=== PATIENT | male | born 2000 | race Caucasian/White ===

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

== ENCOUNTER 2023-11-25 10:53 | Emergency (ER) | payer MEDICAID, SELFPAY ==
--- NOTE | ~2023-11-25 | XR_ITS ---
EXAMINATION: XR knee RT min 4V DATE: 11/25/2023 11:32 INDICATION: Right knee injury TECHNIQUE: Anteroposterior, 2 oblique and crosstable lateral views of the right knee were obtained COMPARISON: None. FINDINGS: Alignment is normal. No fracture. Joint space at the right knee are normal. No joint effusion/layeri ng lipohemarthrosis. Soft tissues are unremarkable. IMPRESSION: 1. Normal right knee radiographs. Reviewed, dictated and finalized at location B.
[2023-11-25 11:04] VITALS: BP 123/70; PULSE 67; RESP 18; TEMP 37; O2SAT 100
--- NOTE | 2023-11-25 11:33 | ED.LOWEXIN ---
HPI - Extremity Injury (Lower) General Chief Complaint: Extremity Injury, Lower Stated Complaint: Right Knee Injury Time Seen by Provider: 11/25/23 11:34 Source: patient Mode of arrival: ambulatory Limitations: no limitations History of Present Illness HPI Narrative: 23-year-old male presented for complaint of right knee pain after injury yesterday morning. He states around 10:00 a.m. he struck knee on a forklift. He was able to work for the remaining shift. He took ibuprofen last night. States pain is better with the leg straight, worse when the knee bends or weight bearing. States the swelling improved since last night. Denies bruising, warmth or deformity. Related Data Home Medications Medication Instructions Recorded Confirmed No Home Medications 11/25/23 11/25/23 Allergies Allergy/AdvReac Type Severity Reaction Status Date / Time No Known Allergies Allergy Verified 11/25/23 11:12 Review of Systems Review of Systems: CONSTITUTIONAL: Denies body aches, fever, chills CARDIOVASCULAR: Denies chest pain, palpitations, or edema. RESPIRATORY: Denies cough or dyspnea. GASTROINTESTINAL: Denies abdominal pain, nausea, vomiting, or diarrhea. SKIN: Denies rash, itching, or wounds. MUSCULOSKELETAL: Reports right knee pain NEUROLOGIC: Denies headache, numbness, tingling, or weakness. All systems reviewed & are unremarkable except as noted in HPI and below PMFSH Past Medical History Medical History Asthma History of RSV infection Lumbar back pain Pneumonia Seizures Surgical History Surgical History History of placement of ear tubes History of tonsillectomy Comments At time of signature, I have reviewed and agree with nursing past medical, surgical, social and family history unless otherwise noted. Please see nursing chart for further information. There is no relevant family history pertinent to the presenting complaint Exam Narrative: GENERAL: Well-appearing CHEST: Speaks in full sentences. No respiratory distress. HEART: Regular rate and rhythm. Normal and equal peripheral pulses. EXTREMITIES: Patient is able to bear weight and ambulate with pain to the right knee. No bruising, erythema or warmth. The right knee is without obvious asymmetry or deformity when compared to the other knee. Patient is able to tolerate full extension, internal and external rotation. Pain worse when flexion. Tender to medial and superior aspects of patella. No tenderness to palpation of the patella, no effusion or ballottement. No tenderness over the infrapatellar tendon. No tenderness over the proximal fibular head. No quadriceps tenderness. Distal motor and neurovascular status intact. SKIN: Warm, dry, Capillary refill less than 3 seconds. NEURO: Alert and oriented x3. PSYCH: Normal mood and affect Extrem: Knee images: 1. reported area of pain Course Course Emergency Course: Patient is aware of diagnosis, understands and agrees to treatment plan. Anticipatory guidance given. Patient agrees to follow-up as directed and is aware of reasons to seek care at the emergency department. Portions of this record may have been created with voice recognition software Level of Care: Express Care Visit Vital Signs Vital signs: Vital Signs Temperature 98.6 F 11/25/23 11:04 Pulse Rate 67 11/25/23 11:04 Respiratory Rate 18 11/25/23 11:04 Blood Pressure 123/70 11/25/23 11:04 Pulse Oximetry 100 11/25/23 11:04 Oxygen Delivery Room Air 11/25/23 11:04 Temperature 98.6 F 11/25/23 11:04 Pulse Rate 67 11/25/23 11:04 Respiratory Rate 18 11/25/23 11:04 Blood Pressure 123/70 11/25/23 11:04 Pulse Oximetry 100 11/25/23 11:04 Oxygen Delivery Room Air 11/25/23 11:04 Reviewed MDM - Extremity Injury (Lower) MDM Narrative Medical decision making narrative: Lucy
== END 2023-11-25 11:50 | disposition home or self-care (01) ==
PROVIDERS: Emergency Provider Nurse Practitioner Family
DX: M25.561 Pain in right knee (principal); J45.909 Unspecified asthma, uncomplicated
CPT/HCPCS: 73564; 99213; G0463

== ENCOUNTER 2024-11-01 10:45 | Emergency (ER) | payer OTHER, SELFPAY ==
--- NOTE | ~2024-11-01 | XR_ITS ---
EXAMINATION: XR chest 2V 11/01/2024 12:07 INDICATION: Shortness of breath PROCEDURE: 2 view chest COMPARISON: No prior studies for comparison. FINDINGS: The lungs are clear. The cardiomediastinal silhouette is within normal limits. There are no pleural effusions. There is no pneumothorax suspected. IMPRESSION: 1: NO ACUTE CARDIOPULMONARY DISEASE. Reviewed, dictated and finalized at location O.
--- NOTE | ~2024-11-01 | XR_ITS ---
XR thoracic spine 3V 11/01/2024 12:07 Indication: Back pain after lifting injury Procedure: 3 views thoracic spine Comparison: No prior studies for comparison. Findings: No acute fracture, subluxation or dislocation. Vertebral body heights are maintained. Surrounding osseous structures within normal limits. Impression: 1: No acute abnormality of the thoracic spine. Reviewed, dictated and finalized at location O. Impression: 1: No acute abnormality of the thoracic spine.
[2024-11-01 11:00] VITALS: BP 136/80; PULSE 82; RESP 16; TEMP 36.8; O2SAT 100
--- NOTE | 2024-11-01 12:11 | ED_ITS ---
HPI - General Adult General Chief complaint: Back Pain/Injury Stated complaint: BACK INJURY Source: patient Mode of arrival: ambulatory Limitations: no limitations History of Present Illness HPI narrative: Patient presents for evaluation of back pain since yesterday. Indicates he injured his back at work in April of this year. He was seen at urgent care and was told he had a hairline fracture of T9. He followed up with orthoepdics and then had a workman's comp case. he completed 12 weeks of physical therapy. He states he had MRI of thoracic spine which showed compression wedge. Yesterday, he was lifting boxes at work and experienced recurrence of his pain. No specific movement induced his pain yesterday. His pain progressed throughout the day. He rates his pain between 7 and 9/10 in severity. Pain radiates into the left side of his chest. Inspiration makes his symptoms worse. He has tried taking NSAIDs for his pain without much improvement. Related Data Home Medications ?Medication ?Instructions ?Recorded ?Confirmed ?Last Taken ?Type No Home Medications 11/25/23 11/25/23 U nknown History Allergies Allergy/AdvReac Type Severity Reaction Status Date / Time No Known Allergies Allergy Verified 11/25/23 11:12 Review of Systems Review of Systems: CONSTITUTIONAL: Denies fever, chills, or sweats. EYES: Denies visual changes, redness, or discharge. ENT: Denies rhinorrhea, congestion, sore throat, or otalgia. CARDIOVASCULAR: Denies chest pain, palpitations, or edema. RESPIRATORY: Denies cough or dyspnea. GASTROINTESTINAL: Denies abdominal pain, nausea, vomiting, or diarrhea. GENITOURINARY: Denies dysuria or hematuria. SKIN: Denies rash or itching. MUSCULOSKELETAL: reports back pain with radiation to the left side of his chest NEUROLOGIC: Denies headache, numbness, dizziness, or weakness. PSYCHIATRIC: Denies anxiety or depression. [facility] Past Medical History Medical History Lumbar back pain Seizures History of RSV infection Pneumonia Asthma Surgical History Surgical History History of tonsillectomy History of placement of ear tubes Family History Family History Mother Family history non-contributory Social History Social History Substance use: current Substance use type: marijuana Gender identity (if verbalized by the patient): Male Spiritual care concerns: No Exam Narrative: GENERAL: Well-appearing, well-nourished, and in no acute distress. HEAD: Normocephalic, atraumatic. EYES: PERRLA and EOMI. ENT: Nares clear, no rhinorrhea or epistaxis. Mucous membranes moist. Oropharynx without tonsillar hypertrophy exudate or other lesions. Bilateral TMs pearly salmon nonbulging NECK: Supple. No adenopathy or masses. No carotid bruits or JVD CHEST: Clear to auscultation. No respiratory distress. No wheezes rales or rhonchi HEART: Regular rate and rhythm. No murmur heard. Normal peripheral pulses. ABDOMEN: Soft, nontender, nondistended, normal active bowel sounds. BACK: there is tenderness diffusely in the thoracic spinal region and over the left lateral ribs. EXTREMITIES: Normal range of motion. No edema. SKIN: Warm, dry, no rash. NEURO: No focal deficits. Alert and oriented x3. PSYCH: Normal mood and affect. Course Course Emergency Course: This is a 24-year-old male who presented for evaluation of back pain. X-rays negative for fracture. Exam consistent thoracic myofascial strain. I offered to write him prescriptions for medrol dose alayna and steroids. He declined. Recommend NSAIDs for pain. Application of warm moist heat may help. Follow up with primary provider. Go to the ER for worsening symptoms. Pt in agreement with plan of care. Level of Care: Express Care Visit Vital Signs Vital signs: Vital Signs Temperature 36.8 C 11/01/24 11:00 Pulse Rate 82 11/01/24 11:00 Respiratory Rate 16 11/01/24 11:00 Blood Pressure 136/80 11/01/24 11:00 Pulse Oximetry 100 11/01/24 11:00 Temperature 36.8 C 11/01/24 11:00 Pulse Rate 82 11/01/24 11:00 Respiratory Rate 16 11/01/24 11:00 Blood Pressure 136/80 11/01/24 11:00 Pulse Oximetry 100 11/01/24 11:00 Medical Decision Making Vital Signs Vital Signs: Vital Signs Temperature 36.8 C 11/01/24 11:00 Pulse Rate 82 11/01/24 11:00 Respiratory Rate 16 11/01/24 11:00 Blood Pressure 136/80 11/01/24 11:00 Pulse Oximetry 100 11/01/24 11:00 Temperature 36.8 C 11/01/24 11:00 Pulse Rate 82 11/01/24 11:00 Respiratory Rate 16 11/01/24 11:00 Blood Pressure 136/80 11/01/24 11:00 Pulse Oximetry 100 11/01/24 11:00 Imaging Data Radiologist's impression: EXAMINATION: XR chest 2V 11/01/2024 12:07 INDICATION: Shortness of breath PROCEDURE: 2 view chest COMPARISON: No prior studies for comparison. FINDINGS: The lungs are clear. The cardiomediastinal silhouette is within normal limits. There are no pleural effusions. There is no pneumothorax suspected. IMPRESSION: 1: NO ACUTE CARDIOPULMONARY DISEASE. XR thoracic spine 3V 11/01/2024 12:07 Indication: Back pain after lifting injury Procedure: 3 views thoracic spine Comparison: No prior studies for comparison. Findings: No acute fracture, subluxation or dislocation. Vertebral body heights are maintained. Surrounding osseous structures within normal limits. Impression: 1: No acute abnormality of the thoracic spine. Discharge Plan Discharge Clinical Impression: Acute thoracic myofascial strain Patient Disposition: Home Condition: Stable Instructions: Antibiotic Form, Muscle Strain (ED) Patient Language: Occitan Prescriptions: No Action No Home Medications Follow-up/Referrals: Compa Carpenter MD [Physician, Family Practice] Stand Alone Forms: Work/School Release IP Time of Disposition: 12:20
== END 2024-11-01 12:29 | disposition home or self-care (01) ==
PROVIDERS: Emergency Provider Nurse Practitioner
DX: S29.012A Strain of muscle and tendon of back wall of thorax, initial encounter (principal); X50.0XXA Overexertion from strenuous movement or load, initial encounter; J45.909 Unspecified asthma, uncomplicated
CPT/HCPCS: 71046; 72072; 99213; G0463

== ENCOUNTER 2024-11-05 16:06 | Emergency (ER) | payer OTHER, SELFPAY ==
--- NOTE | 2024-11-05 17:06 | ED.BACK ---
HPI - Back Pain/Injury General Chief Complaint: Back Pain/Injury Stated Complaint: NECK & BACK PAIN/NEEDS WORK NOTE Source: patient Mode of arrival: ambulatory Limitations: no limitations History of Present Illness HPI Narrative: 24-year-old male presented for complaint of neck and upper back pain for about 1 week. Patient was seen in clinic 5 days ago for the same. He has been taking ibuprofen. He says he was offered a muscle relaxer but is unable to work when he takes this, so was requesting the medication as well as a light duty note. Patient denies numbness, tingling, weakness of the upper extremities. He endorses decreased range of motion to the upper extremities due to the neck pain. Endorses normal range of motion to the neck but has pain. Related Data Allergies Allergy/AdvReac Type Severity Reaction Status Date / Time No Known Allergies Allergy Verified 11/05/24 16:13 Review of Systems Review of Systems: CONSTITUTIONAL: Denies body aches, fever, chills EYES: Denies visual changes CARDIOVASCULAR: Denies chest pain, palpitations, or edema. RESPIRATORY: Denies cough or dyspnea. GASTROINTESTINAL: Denies abdominal pain, nausea, vomiting, or diarrhea. SKIN: Denies rash MUSCULOSKELETAL: reports back and neck pain NEUROLOGIC: Denies headache, numbness, tingling, or weakness. All systems reviewed & are unremarkable except as noted in HPI and below PMFSH Past Medical History Medical History Lumbar back pain Seizures History of RSV infection Pneumonia Asthma Surgical History Surgical History History of tonsillectomy History of placement of ear tubes Family History Family History Mother Family history non-contributory Social History Social History Substance use: current Substance use type: marijuana Gender identity (if verbalized by the patient): Male Spiritual care concerns: No Comments At time of signature, I have reviewed and agree with nursing past medical, surgical, social and family history unless otherwise noted. Please see nursing chart for further information. There is no relevant family history pertinent to the presenting complaint Exam Narrative: GENERAL: Well-appearing HEAD: Normocephalic, atraumatic. EYES: conjunctivae clear NECK: full ROM but reports painful range of motion CHEST: Speaks in full sentences. No respiratory distress. HEART: Regular rate and rhythm. Normal and equal peripheral pulses. MUSC: Cervical paraspinal tenderness with palpation, tenderness to scapula in midthoracic muscles. No Vertebral point tenderness. BUEs with normal strength and sensation, normal range of motion but endorses pain with overhead movement or lateral movement >90 degrees. pulse palpable and equal bilaterally, skin warm, dry, pink. Capillary refill less than 3 seconds. Gait steady. SKIN: Warm, dry, no rash. NEURO: Alert and oriented x3. Course Course Emergency Course: Patient is aware of diagnosis, understands and agrees to treatment plan. Anticipatory guidance given. Patient agrees to follow-up as directed and is aware of reasons to seek care at the emergency department. Portions of this record may have been created with voice recognition software Level of Care: Express Care Visit Vital Signs Vital signs: Reviewed MDM - Back Pain/Injury MDM Narrative Medical decision making narrative: Discussed physical exam findings, reviewed prescriptions. Patient states he would like to be able to work but needs light duty. Advised supportive measures and s/s to go to the ER. Pt is stable and appropriate for outpt treatment and follow up with pcp. Differential Diagnosis Differential diagnosis: Likely lumbar radiculopathy, sciatica, strain of lumbar region, renal colic, pyelonephritis and discitis Discharge Plan Discharge Clinical Impression: Neck strain, Dorsalgia Patient Disposition: Home Condition: Stable Instructions: Acute Neck Pain (ED) Additional Instructions: Rest. Avoid pushing, pulling, lifting or anything that worsens the symptoms; you may need to follow up with your primary care provider for additional work restrictions. Tylenol 1000mg every 8 hours as needed You can alternate with ibuprofen 800mg Cyclobenzaprine (Flexeril) is a muscle relaxer. Take it as directed. It can cause drowsiness so do not drive or operate machinery until you know how it makes you feel. Alternate ice/heat to the site. Lidocaine or salon pas pain patch or use pain cream like icy/hot or biofreeze. Follow up with your primary care provider as needed in 1 week Go to the ER for worsening symptoms or concerns Patient Language: Divehi Prescriptions: New cyclobenzaprine 10 mg tablet 10 mg PO TID PRN (Reason: muscle spasm) Qty: 10 0RF ibuprofen 800 mg tablet 800 mg PO TID PRN (Reason: pain) Qty: 15 0RF Follow-up/Referrals: PHYSICIAN,PRODUCTION SERVICE MANAGER [Primary Care Provider, Internal Medicine] Stand Alone Forms: Work/School Release IP
== END 2024-11-05 17:29 | disposition home or self-care (01) ==
PROVIDERS: Emergency Provider Nurse Practitioner Family
DX: S16.1XXA Strain of muscle, fascia and tendon at neck level, initial encounter (principal); X58.XXXA Exposure to other specified factors, initial encounter; M54.6 Pain in thoracic spine; J45.909 Unspecified asthma, uncomplicated; F12.90 Cannabis use, unspecified, uncomplicated
CPT/HCPCS: 99213; G0463